=== PATIENT | male | born 1945 | race Caucasian/White ===

== ENCOUNTER 2020-11-10 14:27 | Observation (INO) ==
[2020-11-10] MEDS ORDERED: Aspirin 325 MG TABLET PO ONE (15:50)
[2020-11-10] MEDS ORDERED: Ondansetron 4 MG/2 ML VIAL IVP PRN (16:49)
[2020-11-10] MEDS ORDERED: *HR* Dextrose 50 % in Water (Vial) 50 ML VIAL IVP PRN (16:49)
[2020-11-10] MEDS ORDERED: D5% in Water 1,000 ML IVC PRN (16:49)
[2020-11-10] MEDS ORDERED: Naloxone 0.4 MG/ML INJ IVP PRN (16:49)
[2020-11-10] MEDS ORDERED: Acetaminophen 325 MG TABLET PO PRN (16:49)
[2020-11-10] MEDS ORDERED: Dextrose Gel 15 GM/37.5 ML TUBE PO PRN ×2 (16:49)
[2020-11-10] MEDS ORDERED: Perflutren Lipid Microsphere 1.3 ML in 0.9 % Sodium Chloride 8.7 ML IVP PRN (16:53)
[2020-11-10 20:28] LABS: BUN/Creatinine Ratio 14 (6-26); Blood Urea Nitrogen 17 mg/dL (8-23); Calcium 8.9 mg/dL (8.6-10.3); Carbon Dioxide 26 mEq/L (23-29); Chloride 106 mEq/L (98-107); Glucose 220 mg/dL (70-105); Osmolality,Calculated 296 (280-300); Potassium 4.1 mEq/L (3.5-5.1); Sodium 139 mEq/L (136-145); eGFR For African Americans > 60 (> 60); eGFR For Non-African Americans 56 (> 60)
[2020-11-10] MEDS ORDERED: *HR* Heparin 5,000 UNIT/ML VIAL IVP PRN ×2 (20:47)
[2020-11-10] MEDS ORDERED: *HR* Heparin 5,000 UNIT/ML VIAL IVP ONE (20:47)
[2020-11-10] MEDS: Heparin 25,000UNIT/250ML 1/2NS 25,000 UNIT/250 ML IV.SOLN IVC SCH (21:45)
[2020-11-10] MEDS: Insulin LISPRO 300 UNITS/3 ML VIAL SUBQ SCH (21:47)
[2020-11-10 22:33] LABS: Hematocrit 49.2 % (37.5-50.1); Hemoglobin 16.3 g/dL (12.9-16.9); Mean Corpuscular HGB Conc 33.1 g/dL (31.6-35.5); Mean Corpuscular Hemoglobin 27.3 pg (28.0-33.3); Mean Corpuscular Volume 82.3 fL (83.0-100.0); Mean Platelet Volume 10.4 fL (9.4-12.4); Platelet Count 150 K/mcL (140-400); Red Blood Count 5.98 M/mcL (4.19-5.50); Red Cell Distribution Width 13.8 % (11.5-14.5); White Blood Count 8.6 K/mcL (4.3-11.1)
[2020-11-10 22:44] LABS: Heparin anti-factor XA UFH < 0.04 IU/mL (0.30-0.70)
[2020-11-10 22:45] LABS: Prothrombin Time 11.9 Seconds (9.4-12.1)
[2020-11-10 22:47] LABS: Activated Partial Thrombo Time 31.5 Seconds (26.0-36.0)
[2020-11-11 04:52] LABS: Basophils # 0.1 K/mcL (0.0-0.2); Basophils % 0.7 %; Eosinophils # 0.1 K/mcL (0.0-0.6); Eosinophils % 1.8 %; Hematocrit 47.4 % (37.5-50.1); Hemoglobin 15.6 g/dL (12.9-16.9); Immature Granulocytes % 0.3 % (0-4); Lymphocytes # 2.2 K/mcL (0.6-4.6); Lymphocytes % 28.5 %; Mean Corpuscular HGB Conc 32.9 g/dL (31.6-35.5); Mean Corpuscular Volume 82.1 fL (83.0-100.0); Mean Platelet Volume 10.3 fL (9.4-12.4); Monocytes # 0.6 K/mcL (0.0-1.3); Monocytes % 7.5 %; Neutrophils # 4.7 K/mcL (1.6-8.9); Platelet Count 143 K/mcL (140-400); Red Blood Count 5.77 M/mcL (4.19-5.50); Red Cell Distribution Width 13.7 % (11.5-14.5); Segmented Neutrophils % 61.2 %; White Blood Count 7.6 K/mcL (4.3-11.1)
[2020-11-11 05:10] LABS: BUN/Creatinine Ratio 17 (6-26); Blood Urea Nitrogen 20 mg/dL (8-23); Calcium 8.4 mg/dL (8.6-10.3); Carbon Dioxide 26 mEq/L (23-29); Chloride 105 mEq/L (98-107); Glucose 207 mg/dL (70-105); Osmolality,Calculated 299 (280-300); Potassium 3.8 mEq/L (3.5-5.1); Sodium 140 mEq/L (136-145); eGFR For African Americans > 60 (> 60); eGFR For Non-African Americans > 60 (> 60)
[2020-11-11 05:24] LABS: Thyroid Stimulating Hormone 3.379 mcIU/mL (0.340-5.600)
[2020-11-11] MEDS ORDERED: *HR* Heparin 5,000 UNIT/ML VIAL SQ SCH (06:00)
[2020-11-11] MEDS: Insulin DETEMIR 100 UNIT/ML X5UNITS SUBQ SCH ×2 (07:29→20:58)
[2020-11-11] MEDS: Insulin LISPRO 300 UNITS/3 ML VIAL SUBQ SCH ×3 (07:50→17:48)
[2020-11-11] MEDS: Valsartan 160 MG TABLET PO SCH (09:08)
[2020-11-11] MEDS: Gabapentin 100 MG CAPSULE PO SCH (09:08)
[2020-11-11] MEDS: Isosorbide MONOnitrate (24 HR) 60 MG TAB.ER.24H PO SCH (09:08)
[2020-11-11] MEDS: Furosemide 40 MG TABLET PO SCH (09:08)
[2020-11-11] MEDS: Cyanocobalamin (B-12) 1,000 MCG TABLET PO SCH (09:08)
[2020-11-11] MEDS: Cholecalciferol (D-3) 1,000 UNIT (25MCG) TABLET PO SCH (09:08)
[2020-11-11] MEDS: allopurinoL 100 MG TABLET PO SCH (09:08)
[2020-11-11] MEDS: Ubidecarenone [Coenzyme Q10] 100 MG PO SCH (09:08)
[2020-11-11] MEDS: Heparin 25,000UNIT/250ML 1/2NS 25,000 UNIT/250 ML IV.SOLN IVC SCH (20:58)
[2020-11-11] MEDS ORDERED: Gabapentin 300 MG CAPSULE PO SCH (21:00)
[2020-11-12 04:57] LABS: Basophils # 0.1 K/mcL (0.0-0.2); Basophils % 0.6 %; Eosinophils # 0.1 K/mcL (0.0-0.6); Eosinophils % 1.3 %; Immature Granulocytes % 0.4 % (0-4); Lymphocytes # 2.2 K/mcL (0.6-4.6); Lymphocytes % 22.3 %; Mean Corpuscular HGB Conc 32.7 g/dL (31.6-35.5); Mean Corpuscular Hemoglobin 26.9 pg (28.0-33.3); Mean Corpuscular Volume 82.5 fL (83.0-100.0); Mean Platelet Volume 10.4 fL (9.4-12.4); Monocytes # 0.7 K/mcL (0.0-1.3); Monocytes % 6.9 %; Neutrophils # 6.8 K/mcL (1.6-8.9); Platelet Count 144 K/mcL (140-400); Red Blood Count 5.94 M/mcL (4.19-5.50); Red Cell Distribution Width 13.6 % (11.5-14.5); Segmented Neutrophils % 68.5 %; White Blood Count 9.9 K/mcL (4.3-11.1)
[2020-11-12 05:16] LABS: BUN/Creatinine Ratio 15 (6-26); Blood Urea Nitrogen 20 mg/dL (8-23); Calcium 8.3 mg/dL (8.6-10.3); Carbon Dioxide 26 mEq/L (23-29); Chloride 106 mEq/L (98-107); Glucose 105 mg/dL (70-105); Osmolality,Calculated 291 (280-300); Potassium 3.6 mEq/L (3.5-5.1); Sodium 139 mEq/L (136-145); eGFR For African Americans > 60 (> 60); eGFR For Non-African Americans 52 (> 60)
[2020-11-12] MEDS ORDERED: Tiotropium 10 INH DOSE IH SCH (07:00)
[2020-11-12] MEDS: Insulin LISPRO 300 UNITS/3 ML VIAL SUBQ SCH ×2 (08:27→12:22)
[2020-11-12] MEDS: Cholecalciferol (D-3) 1,000 UNIT (25MCG) TABLET PO SCH (10:35)
[2020-11-12] MEDS: allopurinoL 100 MG TABLET PO SCH (10:35)
[2020-11-12] MEDS: Valsartan 160 MG TABLET PO SCH (10:36)
[2020-11-12] MEDS: Gabapentin 100 MG CAPSULE PO SCH (10:36)
[2020-11-12] MEDS: Furosemide 40 MG TABLET PO SCH (10:36)
[2020-11-12] MEDS: Isosorbide MONOnitrate (24 HR) 60 MG TAB.ER.24H PO SCH (10:36)
[2020-11-12] MEDS: Cyanocobalamin (B-12) 1,000 MCG TABLET PO SCH (10:36)
[2020-11-12] MEDS: Ubidecarenone [Coenzyme Q10] 100 MG PO SCH (10:37)
[2020-11-12 10:46] VITALS: BP 162/78
== END 2020-11-12 13:11 | disposition home or self-care (01) ==
LOC: EMEROOARM 14:27 → 3ANU 14:27 → SUATTDRO 17:28 → 3ANU 19:31
PROVIDERS: ADMIT Internal Medicine; ATTEND Internal Medicine

== ENCOUNTER 2021-11-26 21:03 | Inpatient (IN) ==
[2021-11-26] MEDS ORDERED: *HR* Adenosine 6 MG/2 ML VIAL IVP ONE ×4 (21:19→21:28)
[2021-11-26] MEDS ORDERED: *HR* Etomidate 20 MG/10 ML AMPUL IVP ONE ×2 (21:27→21:29)
[2021-11-26] MEDS ORDERED: 0.9 % Sodium Chloride 1,000 ML IV ONE (21:38)
[2021-11-26 22:17] LABS: Basophils # 0.1 K/mcL (0.0-0.2); Basophils % 0.6 %; Eosinophils # 0.2 K/mcL (0.0-0.6); Eosinophils % 1.4 %; Hematocrit 46.9 % (37.5-50.1); Hemoglobin 15.8 g/dL (12.9-16.9); Immature Granulocytes % 0.2 % (0-4); Lymphocytes # 4.2 K/mcL (0.6-4.6); Lymphocytes % 32.2 %; Mean Corpuscular HGB Conc 33.7 g/dL (31.6-35.5); Mean Corpuscular Hemoglobin 27.9 pg (28.0-33.3); Mean Corpuscular Volume 82.9 fL (83.0-100.0); Mean Platelet Volume 10.6 fL (9.4-12.4); Monocytes # 0.9 K/mcL (0.0-1.3); Monocytes % 6.7 %; Neutrophils # 7.7 K/mcL (1.6-8.9); Platelet Count 184 K/mcL (140-400); Red Blood Count 5.66 M/mcL (4.19-5.50); Red Cell Distribution Width 13.5 % (11.5-14.5); Segmented Neutrophils % 58.9 %
[2021-11-26 22:23] LABS: Alanine Aminotransferase 22 Units/L (7-52); Albumin 3.9 g/dL (3.5-5.7); Albumin/Globulin Ratio 1.5 (1.1-2.2); Alkaline Phosphatase 78 Units/L (34-104); Aspartate Amino Transferase 16 Units/L (13-39); BUN/Creatinine Ratio 19 (6-26); Bilirubin,Total 1.3 mg/dL (0.3-1.0); Blood Urea Nitrogen 25 mg/dL (8-23); Calcium 9.1 mg/dL (8.6-10.3); Carbon Dioxide 26 mEq/L (23-29); Chloride 108 mEq/L (98-107); Globulin 2.6 g/dL (2.4-3.5); Glucose 139 mg/dL (70-105); Osmolality,Calculated 299 (280-300); Sodium 141 mEq/L (136-145); Total Protein 6.5 g/dL (6.4-8.9); Troponin I < 0.03 ng/mL (< 0.04); eGFR For African Americans > 60 (> 60); eGFR For Non-African Americans 52 (> 60)
[2021-11-26 22:24] LABS: INR 1.1; Prothrombin Time 11.7 Seconds (9.4-12.1)
[2021-11-26 22:36] LABS: Thyroid Stimulating Hormone 3.019 mcIU/mL (0.340-5.600)
[2021-11-27] MEDS: DilTIAZem 50 MG/50 ML IV.SOLN IVC SCH ×3 (00:06→15:09)
[2021-11-27] MEDS ORDERED: Melatonin 3 MG TABLET PO PRN (00:20)
[2021-11-27] MEDS ORDERED: Ondansetron 4 MG/2 ML VIAL IVP PRN (00:20)
[2021-11-27] MEDS ORDERED: Acetaminophen 325 MG TABLET PO PRN (00:20)
[2021-11-27] MEDS ORDERED: Naloxone 0.4 MG/ML INJ IVP PRN (00:20)
[2021-11-27] MEDS ORDERED: Perflutren Lipid Microsphere 1.3 ML in 0.9 % Sodium Chloride 8.7 ML IVP PRN ×2 (01:14→06:50)
[2021-11-27] MEDS ORDERED: *HR* Dextrose 50 % in Water (Syg) 50 ML SYRINGE IVP PRN (01:24)
[2021-11-27] MEDS ORDERED: D5% in Water 1,000 ML IVC PRN (01:24)
[2021-11-27] MEDS ORDERED: Dextrose Gel 15 GM/37.5 ML TUBE PO PRN ×2 (01:24)
[2021-11-27] MEDS ORDERED: *HR* Heparin 5,000 UNIT/ML VIAL IVP ONE (02:42)
[2021-11-27] MEDS ORDERED: *HR* Heparin 5,000 UNIT/ML VIAL IVP PRN ×2 (02:42)
[2021-11-27 02:57] LABS: Immature Granulocytes % 0.3 % (0-4); Red Cell Distribution Width 13.5 % (11.5-14.5)
[2021-11-27 02:59] LABS: Basophils # 0.1 K/mcL (0.0-0.2); Basophils % 0.6 %; Eosinophils # 0.1 K/mcL (0.0-0.6); Eosinophils % 1.3 %; Hematocrit 41.5 % (37.5-50.1); Immature Platelets 2.7 % (1.1-6.1); Lymphocytes % 31.8 %; Mean Corpuscular HGB Conc 33.7 g/dL (31.6-35.5); Mean Corpuscular Hemoglobin 27.8 pg (28.0-33.3); Mean Corpuscular Volume 82.5 fL (83.0-100.0); Mean Platelet Volume 10.3 fL (9.4-12.4); Monocytes # 0.6 K/mcL (0.0-1.3); Monocytes % 6.6 %; Neutrophils # 5.6 K/mcL (1.6-8.9); Platelet Count 141 K/mcL (140-400); Red Blood Count 5.03 M/mcL (4.19-5.50); Segmented Neutrophils % 59.4 %; White Blood Count 9.4 K/mcL (4.3-11.1)
[2021-11-27 03:15] LABS: BUN/Creatinine Ratio 20 (6-26); Blood Urea Nitrogen 23 mg/dL (8-23); Calcium 8.4 mg/dL (8.6-10.3); Carbon Dioxide 25 mEq/L (23-29); Chloride 111 mEq/L (98-107); Glucose 111 mg/dL (70-105); Osmolality,Calculated 298 (280-300); Phosphorous 3.4 mg/dL (2.7-4.5); Potassium 3.9 mEq/L (3.5-5.1); Sodium 142 mEq/L (136-145); eGFR For African Americans > 60 (> 60); eGFR For Non-African Americans > 60 (> 60)
[2021-11-27 03:17] LABS: Troponin I 0.03 ng/mL (< 0.04)
[2021-11-27 03:30] LABS: Thyroid Stimulating Hormone 2.378 mcIU/mL (0.340-5.600)
[2021-11-27 04:56] LABS: Hemoglobin 14.1 g/dL (12.9-16.9)
[2021-11-27 04:58] LABS: Hematocrit 42.3 % (37.5-50.1); Immature Platelets 3.2 % (1.1-6.1); Mean Corpuscular HGB Conc 33.3 g/dL (31.6-35.5); Mean Corpuscular Hemoglobin 27.5 pg (28.0-33.3); Mean Corpuscular Volume 82.5 fL (83.0-100.0); Red Blood Count 5.13 M/mcL (4.19-5.50); Red Cell Distribution Width 13.4 % (11.5-14.5); White Blood Count 9.3 K/mcL (4.3-11.1)
[2021-11-27 05:05] LABS: Heparin anti-factor XA UFH < 0.04 IU/mL (0.30-0.70)
[2021-11-27 05:06] LABS: Activated Partial Thrombo Time 34.7 Seconds (26.0-36.0)
[2021-11-27 05:07] LABS: INR 1.1; Prothrombin Time 11.8 Seconds (9.4-12.1)
[2021-11-27] MEDS ORDERED: *HR* Heparin 5,000 UNIT/ML VIAL SQ SCH (06:00)
[2021-11-27] MEDS: Heparin 25,000UNIT/250ML 1/2NS 25,000 UNIT/250 ML IV.SOLN IVC SCH ×2 (06:12→20:02)
[2021-11-27] MEDS ORDERED: Saliva Stimulant 44.3ml BOTTLE PO PRN (06:51)
[2021-11-27] MEDS ORDERED: Metoprolol XL (24 HR) Succ 50 MG TAB.ER.24H PO SCH ×2 (11:15→21:00)
[2021-11-27] MEDS: Furosemide 40 MG/4 ML VIAL IVP SCH (11:38)
[2021-11-27] MEDS ORDERED: Metoprolol XL (24 HR) Succ 25 MG TAB.ER.24H PO ONE (13:00)
[2021-11-27] MEDS ORDERED: *HR* Metoprolol 5 MG/5 ML VIAL IVP PRN (14:43)
[2021-11-27] MEDS ORDERED: *HR* Rivaroxaban 10 MG TABLET PO SCH (17:00)
[2021-11-28] MEDS: DilTIAZem 50 MG/50 ML IV.SOLN IVC SCH (02:18)
[2021-11-28] MEDS: Furosemide 40 MG/4 ML VIAL IVP SCH (08:42)
[2021-11-28] MEDS ORDERED: Metoprolol XL (24 HR) Succ 50 MG TAB.ER.24H PO SCH ×2 (09:00)
[2021-11-28] MEDS ORDERED: Metoprolol XL (24 HR) Succ 25 MG TAB.ER.24H PO ONE (11:45)
[2021-11-28 12:05] LABS: Hematocrit 48.5 % (37.5-50.1); Mean Corpuscular HGB Conc 34.6 g/dL (31.6-35.5); Mean Corpuscular Hemoglobin 27.6 pg (28.0-33.3); Mean Corpuscular Volume 79.8 fL (83.0-100.0); Mean Platelet Volume 10.3 fL (9.4-12.4); Platelet Count 190 K/mcL (140-400); Red Blood Count 6.08 M/mcL (4.19-5.50); Red Cell Distribution Width 13.3 % (11.5-14.5)
[2021-11-28 12:09] LABS: Hemoglobin 16.8 g/dL (12.9-16.9); White Blood Count 17.7 K/mcL (4.3-11.1)
[2021-11-28 12:17] LABS: Potassium 4.2 mEq/L (3.5-5.1)
[2021-11-28 12:48] LABS: Bilirubin,Urine Negative (Negative); Blood,Urine Negative (Negative); Clarity,Urine Clear (Clear); Color,Urine Colorless (Yellow); Glucose,Urine (UA) Normal (Normal); Ketones,Urine Negative (Negative); Leukocyte Esterase,Urine Negative (Negative); Nitrite,Urine Negative (Negative); Protein,Urine Negative (Neg-Trace); Specific Gravity,Urine 1.008 (1.010-1.025); Urobilinogen,Urine Normal (Normal)
[2021-11-28] MEDS: allopurinoL 100 MG TABLET PO SCH (14:05)
[2021-11-28] MEDS: Metoprolol XL (24 HR) Succ 50 MG TAB.ER.24H PO SCH (19:55)
[2021-11-28] MEDS: Heparin 25,000UNIT/250ML 1/2NS 25,000 UNIT/250 ML IV.SOLN IVC SCH (20:24)
[2021-11-29] MEDS: Heparin 25,000UNIT/250ML 1/2NS 25,000 UNIT/250 ML IV.SOLN IVC SCH ×2 (06:51→10:24)
[2021-11-29] MEDS ORDERED: Tiotropium 10 INH DOSE IH PRN (07:00)
[2021-11-29] MEDS ORDERED: Furosemide 40 MG TABLET PO SCH (09:00)
[2021-11-29] MEDS: Aspirin Enteric Coated 81 MG Tablet PO SCH (09:20)
[2021-11-29] MEDS: Cholecalciferol (D-3) 1,000 UNIT (25MCG) TABLET PO SCH (09:20)
[2021-11-29] MEDS: Metoprolol XL (24 HR) Succ 50 MG TAB.ER.24H PO SCH ×2 (09:21→20:59)
[2021-11-29] MEDS: allopurinoL 100 MG TABLET PO SCH (09:21)
[2021-11-29 09:35] LABS: Basophils % 0.6 %; Monocytes % 8.2 %
[2021-11-29 09:37] LABS: Basophils # 0.1 K/mcL (0.0-0.2); Eosinophils # 0.1 K/mcL (0.0-0.6); Eosinophils % 1.1 %; Hematocrit 42.2 % (37.5-50.1); Hemoglobin 14.6 g/dL (12.9-16.9); Immature Granulocytes % 0.4 % (0-4); Immature Platelets 3.4 % (1.1-6.1); Lymphocytes # 2.1 K/mcL (0.6-4.6); Lymphocytes % 24.5 %; Mean Corpuscular HGB Conc 34.6 g/dL (31.6-35.5); Mean Corpuscular Hemoglobin 28.1 pg (28.0-33.3); Mean Corpuscular Volume 81.3 fL (83.0-100.0); Mean Platelet Volume 10.5 fL (9.4-12.4); Monocytes # 0.7 K/mcL (0.0-1.3); Neutrophils # 5.5 K/mcL (1.6-8.9); Platelet Count 128 K/mcL (140-400); Red Blood Count 5.19 M/mcL (4.19-5.50); Red Cell Distribution Width 13.5 % (11.5-14.5); Segmented Neutrophils % 65.2 %; White Blood Count 8.4 K/mcL (4.3-11.1)
[2021-11-29 09:51] LABS: Calcium 8.5 mg/dL (8.6-10.3); Magnesium 1.9 mg/dL (1.6-2.6); Potassium 3.8 mEq/L (3.5-5.1)
[2021-11-29] MEDS: 0.9 % Sodium Chloride 500 ML IVC SCH (12:18)
[2021-11-30] MEDS: Heparin 25,000UNIT/250ML 1/2NS 25,000 UNIT/250 ML IV.SOLN IVC SCH (00:33)
[2021-11-30 03:27] LABS: Calcium 8.4 mg/dL (8.6-10.3); Potassium 3.9 mEq/L (3.5-5.1)
[2021-11-30] MEDS: Cholecalciferol (D-3) 1,000 UNIT (25MCG) TABLET PO SCH (08:39)
[2021-11-30] MEDS: Aspirin Enteric Coated 81 MG Tablet PO SCH (08:39)
[2021-11-30] MEDS: Metoprolol XL (24 HR) Succ 50 MG TAB.ER.24H PO SCH ×2 (08:39→21:10)
[2021-11-30] MEDS: allopurinoL 100 MG TABLET PO SCH (08:39)
[2021-11-30] MEDS: 0.9 % Sodium Chloride 1,000 ML IVC SCH ×2 (08:40→17:10)
[2021-11-30] MEDS: 0.9 % Sodium Chloride 500 ML IVC SCH (08:56)
[2021-11-30] MEDS ORDERED: *HR* Midazolam HCl 2 MG/2 ML VIAL ONE (09:17)
[2021-11-30] MEDS ORDERED: *HR* FentaNYL (PF) 100 MCG/2 ML VIAL ONE (09:17)
[2021-11-30] MEDS ORDERED: *HR* Heparin 10,000 UNIT/10 ML VIAL ONE (09:18)
[2021-11-30] MEDS ORDERED: 0.9 % Sodium Chloride 2,000 ML ONE (09:18)
[2021-11-30] MEDS ORDERED: Iopamidol - 370 200 ML INFUS..BTL ONE (09:18)
[2021-11-30] MEDS ORDERED: Nitroglycerin 1,000 MCG/5 ML VIAL IV ONE (09:18)
[2021-11-30] MEDS ORDERED: Heparin 1,000 UNITS/500 mL 500 ML ONE (09:18)
[2021-11-30] MEDS ORDERED: Apixaban 5 MG TABLET PO SCH (11:00)
[2021-11-30] MEDS: Spironolactone 12.5 MG TABLET PO SCH (11:34)
[2021-11-30 12:09] LABS: BUN/Creatinine Ratio 23 (6-26); Blood Urea Nitrogen 28 mg/dL (8-23); Calcium 8.3 mg/dL (8.6-10.3); Carbon Dioxide 27 mEq/L (23-29); Chloride 105 mEq/L (98-107); Glucose 201 mg/dL (70-105); Osmolality,Calculated 297 (280-300); Potassium 3.9 mEq/L (3.5-5.1); Sodium 138 mEq/L (136-145); eGFR For African Americans > 60 (> 60); eGFR For Non-African Americans 58 (> 60)
[2021-11-30] MEDS ORDERED: *HR* Rivaroxaban 10 MG TABLET PO SCH (17:00)
[2021-12-01 02:51] LABS: Blood Urea Nitrogen 25 mg/dL (8-23); Calcium 7.9 mg/dL (8.6-10.3); Carbon Dioxide 22 mEq/L (23-29); Chloride 108 mEq/L (98-107); Glucose 99 mg/dL (70-105); Osmolality,Calculated 288 (280-300); Potassium 3.9 mEq/L (3.5-5.1); Sodium 137 mEq/L (136-145)
[2021-12-01] MEDS: 0.9 % Sodium Chloride 1,000 ML IVC SCH (03:58)
[2021-12-01 04:22] LABS: BUN/Creatinine Ratio 18 (6-26); eGFR For African Americans > 60 (> 60); eGFR For Non-African Americans 50 (> 60)
[2021-12-01 07:45] VITALS: BP 143/76; PULSE 61; TEMP 98.6; O2SAT 96
[2021-12-01] MEDS: Cholecalciferol (D-3) 1,000 UNIT (25MCG) TABLET PO SCH (07:46)
[2021-12-01] MEDS: Spironolactone 12.5 MG TABLET PO SCH (07:46)
[2021-12-01] MEDS: allopurinoL 100 MG TABLET PO SCH (07:47)
[2021-12-01] MEDS: Metoprolol XL (24 HR) Succ 50 MG TAB.ER.24H PO SCH (07:47)
== END 2021-12-01 10:58 | disposition home or self-care (01) | DRG 287 ==
LOC: EMEROOARM 21:03 → 2ANU 21:03 → SUATTDRO 23:20 → 2ANU 11-27 00:41
PROVIDERS: ADMIT Internal Medicine; ATTEND Hospitalist